=== PATIENT | female | born 1975 | race African-American/Black ===

== ENCOUNTER 2019-10-02 04:00 | Inpatient (IN) | payer MEDICAID, SELFPAY ==
[2019-10-02] VITALS (19 sets, daily range): BP systolic 115–150; BP diastolic 78–104; PULSE 84–116; RESP 16–18; TEMP 36.7–37.1; O2SAT 93–100; BMI 34.4
--- NOTE | 2019-10-02 04:07 | ECG_ITS ---
Measurements Intervals [place] Rate: 103 P: 49 MT: 204 QRS: 1 QRSD: 117 T: 39 QT: 426 QTc: 559 SINUS TACHYCARDIA LOW QRS VOLTAGE IN PRECORDIAL LEADS [QRS DEFLECTION < 1.0 mV IN CHEST LEADS] MODERATE INTRAVENTRICULAR CONDUCTION DELAY [110+ ms QRS DURATION] No previous ECG available for comparison Electronically Signed On 10-02-2019 12:23:35 CDT by Galina Bradford M.D. [email or web address]
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
[2019-10-02] MEDS: LORazepam 2 mg/mL INJ 1 mL IM (04:12)
[2019-10-02] MEDS: haloperidol inj 5 mg/mL INJ 1 mL IM ×2 (04:12→04:30)
[2019-10-02] MEDS: diphenhydrAMINE 50 mg/mL SDV 1mL IM (04:30)
[2019-10-02 05:45] LABS: Basophils % 0.5 %; Eosinophils % 0.3 %; Hematocrit 41.7 % (37.0-47.0); Hemoglobin 13.9 g/dL (11.5-15.3); Lymphocytes # 2.1 10^3/uL (0.8-4.8); Mean Corpuscular HGB Conc 33.3 g/dL (30.0-36.0); Mean Corpuscular Hemoglobin 31.6 pg (28.0-34.0); Mean Corpuscular Volume 94.8 fL (81-99); Mean Platelet Volume 9.5 fL (7.4-10.4); Monocytes # 0.4 10^3/uL (0.2-0.9); Monocytes % 6.1 %; Neutrophils # 3.4 10^3/uL (1.8-7.7); Neutrophils % 57.8 %; Nucleated Red Blood Cells % 0 %; Platelet Count 224 10^3/cmm (130-400); Red Cell Distribution Width 13.1 % (12.1-15.1); White Blood Count 5.9 10^3/uL (4.0-10.0)
[2019-10-02 06:04] LABS: Lithium 0.1 mmol/L (0.6-1.2)
--- NOTE | 2019-10-02 06:24 | PC.NURSE ---
Patient resting, blue scrubs tops and bottoms placed in room and will have patient change when she wakes.
[2019-10-02 06:28] LABS: Alanine Aminotransferase 15 U/L (0-33); Albumin Level 4.4 g/dL (3.5-5.2); Alkaline Phosphatase 60 IU/L (35-105); Anion Gap 18.2 (5-19); Aspartate Amino Transferase 17 U/L (0-32); Blood Urea Nitrogen 6 mg/dL (6-20); Calcium 9.4 mg/dL (8.5-10.5); Carbon Dioxide 26 mmol/L (22-29); Chloride 99 mmol/L (98-107); Globulin 3.3 g/dL (1.3-4.6); Glomerular Filtration Rate 83.1 mL/min (90-130); Glucose 102 mg/dL (65-115); Osmolality Calculated 286 mOsm/kg (285-295); Phenytoin Dilantin 0.8 ug/mL (10-20); Potassium 3.2 mmol/L (3.5-5.1); Sodium 140 mmol/L (136-145); Thyroid Stimulating Hormone 1.09 uIU/mL (0.27-4.20); Total Bilirubin 0.5 mg/dL (0.15-1.2); Total Protein 7.7 g/dL (6.6-8.7); Valproic Acid Level 2.8 mcg/mL (50-100)
[2019-10-02 06:29] LABS: Acetaminophen < 5.0 ug/mL (10-30); Alcohol Level < 10 mg/dL (0-10); Salicylate < 0.3 mg/dL (3-10)
--- NOTE | 2019-10-02 07:51 | PC.NURSE ---
PT changed to scrubs and belongings removed. Again pt was asked to urinate for a urine sample and pt stated she cannot go right now and will go later. Pt said she was going to get very agitated if I kept asking her. ED Physician notified.
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
[2019-10-03 06:00] VITALS: RESP 16
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
[2019-10-03 14:00] VITALS: BP 120/78; PULSE 93; RESP 17; TEMP 36.7; O2SAT 98
[2019-10-03 22:00] VITALS: BP 142/90; PULSE 119; RESP 18; TEMP 36.9; O2SAT 97
[2019-10-04 06:00] VITALS: BP 131/82; PULSE 96; RESP 16; TEMP 36.6; O2SAT 99
--- NOTE | 2019-10-04 06:25 | PC.NURSE ---
Patient refused having weight taken
[2019-10-04 14:00] VITALS: BP 117/88; PULSE 114; RESP 18
--- NOTE | 2019-10-04 17:35 | PM.NPN ---
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 We discussed the fact that she is going to need to consider some medication as we have concerns for having psychosis which she denies. She says she does not like the Paxil because it made her feel and so I discussed the risks benefits and alternatives of Abilify and she understood and agreed to proceed with a trial in the morning. Mental Status Exam MSE Comments: This is an obese -bolivian female with limited dress grooming and eye contact. Quite disheveled.. No abnormal movements except for psychomotor retardation. More cooperative with exam. In mild distress. Speech was more normal rate and volume. Mood described I'm fine, affect odd. Thought process more organized. Thought content: Patient denied any suicidal or homicidal ideation, there were no delusions reported but continued paranoid and persecutory delusions exist, she denies auditory visual hallucinations and does not appear to be attending to internal stimuli. Attention and concentration are improving and memory is unreliable but none were formally tested. She is alert and oriented to person and place. Insight and judgment are impaired, but improving. Vitals/I&O/Wt Last Vital Signs Temp 98.9 F 10/04/19 22:00 Pulse 103 H 10/04/19 22:00 Resp 18 10/04/19 22:00 BP 129/98 10/04/19 22:00 Pulse Ox 100 10/04/19 22:00 Weight last 48 hrs Weight 0 g Data NPU : 10/02/19 05:30 10/02/19 05:30 A&P Additional A&P Information (1) Psychosis: This is a 43-year-old -[place] female with a reported history of anxiety and some collateral history reporting that she has.'s of confusion like this but it is unclear whether this represents a primary psychotic disorder versus a drug-induced psychosis who presents in martha psychosis with no UDS and without interest in taking medication, but now agreeable if it will help with discharge. 1. Continue current medication. We will start Abilify 10 mg po qam 2. Utilize CIWA protocol. 3. Encourage individual, group and milieu therapy. 4. Continue every 15 minute checks for safety. 5. Work with social work team to find a sober living program, hopefully residential, at the highest level of care to which she is willing to commit. Attestations NPU Medical Necessity Statement*: Inpatient hospitalization is medically necessary and the clinically appropriate intervention at this time. We will continue to offer medications and make changes as indicated. Likely length of stay 2-4 days. Coding Level of Care Code Acute Manager Of Digital for Joseline Bang
[2019-10-04] MEDS: nicotine 2 mg Gum BUCCAL (20:04)
[2019-10-04] MEDS: trazodone 50 mg Tablet PO ×2 (20:44→22:38)
--- NOTE | 2019-10-04 21:38 | PC.NURSE ---
pt given prn trazodone and nicorette gum this evening.
[2019-10-04 22:00] VITALS: BP 129/98; PULSE 103; RESP 18; TEMP 37.2; O2SAT 100
[2019-10-04 22:28] LABS: HCG Qualitative Urine. Negative (Negative)
[2019-10-04 23:06] LABS: Amphetamines Screen Urine Positive (Negative); Barbiturates Screen Urine Negative (Negative); Benzodiazepines Screen Urine Negative (Negative); Cocaine Screen Urine Negative (Negative); Opiate Screen Urine Negative (Negative); PCP Screen Urine Negative (Negative); THC Screen Urine Negative (Negative)
[2019-10-05 06:00] VITALS: BP 109/71; PULSE 94; RESP 17; TEMP 37.2; O2SAT 97
[2019-10-05] MEDS: ARIPiprazole 10 mg Tablet PO (09:21)
--- NOTE | 2019-10-05 09:30 | P.PN_ITS ---
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 She states her intent not to continue to take medication following discharge. She does not believe she has a mental health problem. Mental Status Exam MSE Comments: This is an obese -slovenian female with limited dress grooming and eye contact. No abnormal movements, tics or tremors. Cooperative with exam. No physical distress. Speech was normal rate and volume. Mood described euthymic; affect consistent. Thought process perseverate on her children, the [employer], and her father. Thought content: Patient denied any suicidal or homicidal ideation, there were no delusions admitted but continued paranoid and persecutory delusions exist, she denies auditory visual hallucinations and does not appear to be attending to internal stimuli. Attention and concentration are good but memory is unreliable but none were formally tested. She is alert and oriented to person and place. Insight and judgment are impaired. Cognition: Patient Appearance: Appropriate Level of Consciousness: Awake Patient Cognition Impaired: Yes Ability to Follow Directions: Fair Patient Orientation (long list): Person, Time and Name Comprehension Ability: Moderate Impairment Hallucination Type: None Delusion Description: Not Present and Grandiose Thought Process: Appropriate Affect: Affect Description: Appropriate and Calm Depressive Symptoms: Changes in Appetite Behavior: Patient Behavior: Appropriate and Cooperative Speech Pattern: Appropriate and Clear Vitals/I&O/Wt Last Vital Signs Temp 98.9 F 10/05/19 06:00 Pulse 94 10/05/19 06:00 Resp 17 10/05/19 06:00 BP 109/71 10/05/19 06:00 Pulse Ox 97 10/05/19 06:00 Weight last 48 hrs Weight 0 g Data NPU : 10/02/19 05:30 10/02/19 05:30 A&P Assessment and plan (1) Psychosis: This is a 43-year-old -[place] female with a reported history of anxiety and some collateral history reporting that she has.'s of confusion like this but it is unclear whether this represents a primary psychotic disorder versus a drug-induced psychosis who presents in martha psychosis with no UDS and without interest in taking medication. 1. Day #1 of Abilify 10 mg 2. Utilize CIWA protocol. 3. Encourage individual, group and milieu therapy. 4. Continue every 15 minute checks for safety. 5. Work with social work team to find a sober living program, hopefully residential, at the highest level of care to which she is willing to commit. Status: Acute Additional A&P Information (1) Psychosis: This is a 43-year-old -[place]oc[place] female with a reported history of anxiety and some collateral history reporting that she has.'s of confusion like this but it is unclear whether this represents a primary psychotic disorder versus a drug-induced psychosis who presents in martha psychosis with no UDS and without interest in taking medication, but now agreeable if it will help with discharge. 1. Day #1 Abilify 10 mg po qam 2. Utilize CIWA protocol. 3. Encourage individual, group and milieu therapy. 4. Continue every 15 minute checks for safety. 5. Work with social work team to find a sober living program, hopefully residential, at the highest level of care to which she is willing to commit. Attestations NPU Medical Necessity Statement*: Pt to remain in [facility] for 2-3 more nights for completion of involuntary court ordered commitment. Coding Level of Care Code Acute Audiovisual Librarian for Joseline Bang Diagnoses Psychosis F29
[2019-10-05 14:00] VITALS: BP 110/79; PULSE 96; RESP 20; TEMP 36.7; O2SAT 100
--- NOTE | 2019-10-05 14:31 | PC.SOCIAL ---
Sarai Laguna from the [facility] will be in touch with patient at 3:00 p.m. She will update this worker after the conference call.
[2019-10-05] MEDS: hyDROXYzine 25 mg Capsule 50 MG PO (20:22)
--- NOTE | 2019-10-05 20:48 | PC.NURSE ---
pt offered visteril for anixety and given per pt request.
[2019-10-05 21:53] VITALS: BP 119/89; PULSE 93; RESP 16; TEMP 37.1; O2SAT 98
[2019-10-06 06:00] VITALS: BP 122/83; PULSE 93; RESP 16; TEMP 36.8; O2SAT 100
[2019-10-06] MEDS: ARIPiprazole 10 mg Tablet PO (08:11)
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
[2019-10-06 10:03] VITALS: BP 122/83; PULSE 93; RESP 16; TEMP 36.8; O2SAT 100
[2019-10-06 10:17] VITALS: BP 122/83; PULSE 93; RESP 16; TEMP 36.8; O2SAT 100
--- NOTE | 2019-10-28 15:32 | PC.SOCIAL ---
DFS pillowcase sewer Sarai Mei
== END 2019-10-06 12:29 | disposition home or self-care (01) | DRG 885 ==
LOC: ER 07:58 → NP 07:59
PROVIDERS: Emergency Medicine; Admitting Provider Psychiatry & Neurology Psychiatry; Emergency Provider Family Medicine; Visit Provider Psychiatry & Neurology Psychiatry
DX: F23 Brief psychotic disorder (principal); F17.210 Nicotine dependence, cigarettes, uncomplicated; F41.9 Anxiety disorder, unspecified
CPT/HCPCS: 12345; 80053; 80156; 80164; 80178; 80185; 80306; 80307; 81025; 84443; 85025; 93005; 96372; 99284; J1200; J1630; J2060

== ENCOUNTER → 2019-11-20 14:21 | Outpatient (BNVA) | payer MEDICAID, SELFPAY | PROVIDERS: Visit Provider Counselor Professional | DX: F43.12 Post-traumatic stress disorder, chronic (principal); F41.1 Generalized anxiety disorder | CPT/HCPCS: 90832 ==

== ENCOUNTER → 2019-12-08 11:22 | Outpatient (BNVA) | payer MEDICAID, SELFPAY | PROVIDERS: Visit Provider Counselor Professional | DX: F43.12 Post-traumatic stress disorder, chronic (principal); F41.1 Generalized anxiety disorder | CPT/HCPCS: 90832 ==